=== PATIENT | female | born 1965 | race Caucasian/White ===

== ENCOUNTER 2017-12-25 16:14 | Outpatient (CLI) | END 2017-12-25 16:15 | disposition left against medical advice (07) | LOC: AMBL 16:14 | PROVIDERS: ATTEND Internal Medicine | DX: S60.511A Abrasion of right hand, initial encounter (principal); S20.111A Abrasion of breast, right breast, initial encounter; W10.9XXA Fall (on) (from) unspecified stairs and steps, initial encounter ==